=== PATIENT | male | born 1970 | race Caucasian/White ===

== ENCOUNTER 2024-03-03 07:32 | Outpatient (CLI) | payer OTHER, SELFPAY | END 2024-03-03 07:33 | disposition home or self-care (01) | LOC: NFLDREF 03-06 06:46 | PROVIDERS: PCP Nurse Practitioner Family; Referring Provider Nurse Practitioner Family; Visit Provider Nurse Practitioner Family | DX: I10 Essential (primary) hypertension (principal); Z13.220 Encounter for screening for lipoid disorders; Z13.1 Encounter for screening for diabetes mellitus; Z13.0 Encounter for screening for diseases of the blood and blood-forming organs and certain disorders involving the immune mechanism; Z12.5 Encounter for screening for malignant neoplasm of prostate; R94.31 Abnormal electrocardiogram [ECG] [EKG] | CPT/HCPCS: 80053; 80061; 84443; G0103 ==

== ENCOUNTER 2024-03-03 07:37 | Outpatient (CLI) | payer OTHER, SELFPAY ==
[2024-03-03] MEDS: PERFLUTREN LIPID MICROSPHERES 2 ML VIAL IV (09:00)
== END 2024-03-03 07:38 | disposition home or self-care (01) ==
LOC: RAD 07:37
PROVIDERS: PCP Nurse Practitioner Family; Visit Provider Nurse Practitioner Family
DX: R01.1 Cardiac murmur, unspecified (principal); I10 Essential (primary) hypertension
CPT/HCPCS: 93306; Q9957

== ENCOUNTER 2024-12-29 08:42 | Outpatient (CLI) | payer BC, SELFPAY | END 2024-12-29 08:43 | disposition home or self-care (01) | PROVIDERS: PCP Nurse Practitioner Family; Visit Provider Nurse Practitioner Family | DX: R91.8 Other nonspecific abnormal finding of lung field (principal) | CPT/HCPCS: 71250 ==

== ENCOUNTER 2025-05-16 07:39 | Outpatient (CLI) | payer BC, SELFPAY ==
[2025-05-16] MEDS: PERFLUTREN LIPID MICROSPHERES 2 ML VIAL IVP (08:10)
--- NOTE | 2025-05-16 08:17 | PC.NURSE ---
20g Iv placed into right hand. Definity given per histologic technician instruction. IV removed intact once test completed.
== END 2025-05-16 07:40 | disposition home or self-care (01) ==
LOC: RAD 07:39
PROVIDERS: PCP Nurse Practitioner Family; Visit Provider Internal Medicine
DX: I10 Essential (primary) hypertension (principal); I71.40 Abdominal aortic aneurysm, without rupture, unspecified
CPT/HCPCS: 80048; 93306; Q9957

== ENCOUNTER 2025-07-07 19:02 | Emergency (ER) | payer BC, SELFPAY ==
--- OUTSIDE RECORDS SUMMARY | 2025-07-07 19:04 | XMS_ITS | Clinical Summary ---
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 30 Tablet 3 5 Active rosuvastatin (Crestor) 10 mg tabletIndications:H yperlipidemia, unspecified hyperlipidemia type Take 1 Tablet (10 mg) by mouth once daily. 90 Tablet 3 5 Active Active Problems Problem Noted Date Diagnosed Date Stress and adjustment reaction 04/28/2024 Overview (04/28/2024): Stress rash (to trunk and AC regions) and starting on buspar Unspecified essential hypertension 03/09/2007 Encounters Date Type Department Care Team Description 05/17/2025 Orders Only [facility] Scanner 1 scan: (1-Ord) INCOMING RECORDS-LABS, [facility], 05/17/2025 05/17/2025 Orders Only [facility] [place] [address] [facility] [address] [place] [address] Akhil Rogers <No scans attached> 05/17/2025 Telephone [facility] [place] [address] [place] [address] [address] [facility] [place] [address] Bony Ragsdale MD Results 05/16/2025 8:00 AM CDT Ancillary Procedure [facility] [address] [place] [address] 05/10/2025 9:30 AM CDT Office Visit [facility] [address] [place] [address] Bony Ragsdale MD 05/10/2025 Telephone [facility] [place] [address] [facility] [address] [place] [id number] Bony Ragsdale MD Health Maintenance Update (Start Statin) from Last 3 Months Family History Medical History Relation Name Comments Hypertension Father Hypertension Mother Relation Name Status Comments Brother Alive Father Mother Alive Sister Alive Social History Tobacco Use Types Packs/Day Years Used Date Smoking Tobacco: Never Alcohol Use Standard Drinks/Week Comments No 0 (1 standard drink = 0.6 oz pur e alcohol) Social Connections Answer Date Recorded Frequency of Communication with Friends and Fami ly Not on file 04/06/2024 Sex and Gender Information Value Date Recorded Sex Assigned at Not on file Legal Sex Male 6:53 AM [employer] Gender Identity Not on file Sexual Orientation Not on file Obstetrics History Last Filed Vital Signs Vital Sign Reading Time Taken Comments Blood Pressure 120/85 01/25/2009 3:09 PM [employer] Pulse 65 07/18/2007 8:15 AM CDT Temperature 36.9 C (98.5 F) 01/25/2009 3:09 PM [employer] Respiratory Rate - - Oxygen Saturation - - Inhaled Oxygen Concentration - - Weight 121.1 kg (267 lb) 01/25/2009 3:09 PM [employer] Height - - Body Mass Index - - Plan of Treatment Health Maintenance Due Date Last Done Comments Tetanus booster 1983 Depression screening for age 12+ 1984 HIV for age 15-65 1987 BMI (ht and wt on same day) for age 18+ 1990 Hepatitis C screening for age 18-79 1990 Hepatitis B series for 19+ ( 1 of 3 - 19+ 3-dose series) 1991 Pneumococcal series for age 50+ (1 of 2 - PCV) 1991 Colonoscopy through age 75 2017 Lipids for age 45-75 2017 Zoster (shingles) series for age 50+ (1 of 2) 2022 COVID-19 vaccine series (3 - season) 2024 03/14/2021, 02/14/2021 Influenza Vaccine (#1) 2025 Procedures Procedure Name Priority Date/Time Associated Diagnosis Comments SCAN CORRESP-LABORATORY RESULTS 05/17/2025 12:00 AM CDT ECHO TTE COMPLETE W CONTRAST Routine 05/16/2025 8:20 AM CDT HTN (hypertension) Ascending aorta dilatation from Last 3 Months Results * SCAN CORRESP-LABORATORY RESULTS (05/17/2025 12:00 AM CDT) us Scanner OTHER Final Result * ECHO TTE COMPLETE W CONTRAST (05/16/2025 8:20 AM CDT) AORTIC VALVE MEAN PG 6 mmHg EJECTION FRACTION 55 % LVEDD 5.4 cm EJECTION FRACTION 55 - 60% Anatomical Region Laterality Modality Ultrasound 05/16/2025 7:47 AM CDT Narrative 05/16/2025 8:34 AM CDT ECHOCARDIOGRAM CHICHO CURRY : 1970 54 years Study Date: 05/16/2025 7:47:44 AM Gender: M BP: 120/85 mmHg Height: 175.00 cm BSA: 2.33 m Weight: 121.00 kg Tech: TE Referring MD: BONY RAGSDALE Site: [facility] Reading Location: Mobile-OP Patient Location: Outpatient. Procedure: 2D w/ Contrast, Color Doppler and Spectral Doppler. Indication for study: HTN (hypertension); Ascending aorta dilatation Cardiac Rhythm: Regular.Study quality: Fair. Final Impressions: 1. Normal LV size, normal wall thickness, normal function with an estimated EF of 55 - 60%. 2. Right ventricular cavity size is normal, global systolic RV function is normal. 3. No significant valve disease detected. 4. Dilated sinus of Valsalva, diameter of 4.2 cm (upper limit of normal for age, sex, and BSA is 4.1 cm*), Height Index 2.43 cm/m. 5. Echo contrast was administered to enhance visualization of all left ventricular segments. Comparison Compared to prior exam of 03/03/24, there has been no significant change. Chamber Sizes and Function Normal left ventricular size, normal wall thickness, normal global systolic function with an estimated EF of 55 - 60%. No resting regional wall motion abnormality visualized. Left atrial size is normal. Left atrial pressure is normal. Right ventricular cavity size is normal, global systolic RV function is normal. RV wall thickness is normal. The right atrium is normal. Right atrial volume index is 18 ml/m . Right atrial area is 18 cm . The pulmonary artery is of normal size and origin. The sinus of Valsalva is dilated. The ascending aorta is normal sized. Valves, RV Pressures and Diastolic Function The aortic valve is normal in structure and trileaflet, no stenosis and no regurgitation. The mitral valve is normal in structure, trace mitral regurgitation. Normal diastolic function. The tricuspid valve is normal in structure, trace tricuspid regurgitation. The pulmonic valve is normal. No pulmonary regurgitation. Masses, Effusion, Shunts There is no pericardial effusion. The inferior vena cava is normal sized, respiratory size variation greater than 50%. No left to right shunting was detected by limited color flow Doppler interrogation of the interatrial septum. MEASUREMENTS AND CALCULATIONS 2-D Measurements and LV Function: LVID (d) 5.4 cm LV FS% (2D) 30 % LVID (s) 3.8 cm LVOT diameter 2.4 cm IVS (d) 1.0 cm HR 80 bpm LVPW (d) 1.2 cm LA Vol index 26 ml/m2 Ao Sinus 4.2 cm RA Vol index 18 ml/m2 Ao Sinus ULN 4.1 cm * RA area 18 cm Asc Ao 3.8 cm RV Basal Diam 2.9 cm Asc Ao ULN 4.0 cm * LA 4.5 cm * Input BSA outside of range, reported values correspond to BSA = 2.1 Diastology: Mitral Tissue Doppler E Peak 0.7 m/s e', Septum 0.06 m/s A Peak 1.1 m/s e', Lateral 0.08 m/s E/A 0.7 E/e' Average 10.33 DT 103 msec Aortic Valve: Vmax 1.5 m/s DELGADO (V) 3.04 cm VTI 0.32 m DELGADO (I) 3.05 cm LVOT V max 1.0 m/s Max PG 9 mmHg LVOT VTI 0.21 m Mean PG 6 mmHg SV 98 ml Dim Index 0.66 SV index 42 ml/m CO 7.9 l/min CI 3.4 l/min/m Mitral Valve: MVA 7.4 cm MV P 1/2 30 msec Tricuspid Valve and estimated PA pressures: TAPSE 2.2 cm Contrast documentation: 2 ml ml diluted Definity, lot #[id number], [facility]# [id number] was administered peripherally to enhance visualization of all left ventricular segments. . This study was interpreted by an [facility] accredited facility. CC: [facility] ([facility]. Final Procedure Note Cristopher Ladd MD - 05/16/2025 ECHOCARDIOGRAM CHICHO CURRY : 1970 54 years Study Date: 05/16/2025 7:47:44 AM Gender: M BP: 120/85 mmHg Height: 175.00 cm BSA: 2.33 m Weight: 121.00 kg Tech: TE Referring MD: BONY RAGSDALE Site: [facility] Reading Location: Mobile-OP Patient Location: Outpatient. Procedure: 2D w/ Contrast, Color Doppler and Spectral Doppler. Indication for study: HTN (hypertension); Ascending aorta dilatation Cardiac Rhythm: Regular.Study quality: Fair. Final Impressions: 1. Normal LV size, normal wall thickness, normal function with anestimated EF of 55 - 60%. 2. Right ventricular cavity size is normal, global systolic RV functionis normal. 3. No significant valve disease detected. 4. Dilated sinus of Valsalva, diameter of 4.2 cm (upper limit of normalfor age, sex, and BSA is 4.1 cm*), Height Index 2.43 cm/m. 5. Echo contrast was administered to enhance visualization of all leftventricular segments. Comparison Compared to prior exam of 03/03/24, there has been no significant change. Chamber Sizes and Function Normal left ventricular size, normal wall thickness, normal globalsystolic function with an estimated EF of 55 - 60%. No resting regionalwall motion abnormality visualized. Left atrial size is normal. Leftatrial pressure is normal. Right ventricular cavity size is normal, globalsystolic RV function is normal. RV wall thickness is normal. The rightatrium is normal. Right atrial volume index is 18 ml/m . Right atrialarea is 18 cm . The pulmonary artery is of normal size and origin. Thesinus of Valsalva is dilated. The ascending aorta is normal sized. Valves, RV Pressures and Diastolic Function The aortic valve is normal in structure and trileaflet, no stenosis and noregurgitation. The mitral valve is normal in structure, trace mitralregurgitation. Normal diastolic function. The tricuspid valve is normal instructure, trace tricuspid regurgitation. The pulmonic valve is normal. Nopulmonary regurgitation. Masses, Effusion, Shunts There is no pericardial effusion. The inferior vena cava is normal sized,respiratory size variation greater than 50%. No left to right shunting wasdetected by limited color flow Doppler interrogation of the interatrialseptum. MEASUREMENTS AND CALCULATIONS 2-D Measurements and LV Function: LVID (d) 5.4 cm LV FS% (2D) 30% LVID (s) 3.8 cm LVOT diameter2.4 cm IVS (d) 1.0 cm HR 80bpm LVPW (d) 1.2 cm LA Vol index 26ml/m2 Ao Sinus 4.2 cm RA Vol index 18ml/m2 Ao Sinus ULN 4.1 cm * RA area 18cm Asc Ao 3.8 cm RV Basal Diam2.9 cm Asc Ao ULN 4.0 cm * LA 4.5 cm * Input BSA outside of range, reported values correspond to BSA = 2.1 Diastology: Mitral Tissue Doppler E Peak 0.7 m/s e', Septum 0.06 m/s A Peak 1.1 m/s e', Lateral 0.08 m/s E/A 0.7 E/e' Average 10.33 DT 103 msec Aortic Valve: Vmax 1.5 m/s DELGADO (V) 3.04 cm VTI 0.32 m DELGADO (I) 3.05 cm LVOT V max 1.0 m/s Max PG 9 mmHg LVOT VTI 0.21 m Mean PG 6 mmHg SV 98 ml Dim Index 0.66 SV index 42 ml/m CO 7.9 l/min CI 3.4 l/min/m Mitral Valve: MVA 7.4 cm MV P 1/2 30 msec Tricuspid Valve and estimated PA pressures: TAPSE 2.2 cm Contrast documentation: 2 ml ml diluted Definity, lot #[id number], [facility]#[id number] was administered peripherally to enhance visualization of allleft ventricular segments. . This study was interpreted by an [facility] accredited facility. CC: [facility] (med records) [facility]. Final us Bony Ragsdale MD ECHO ORD Final R esult from Last 3 Months Insurance [facility] [employer]-ITS Care Teams Cartridge Loading Operator Relationship Specialty Start Date End Date Unknown, Doctor . PCP - General 08/16/09
[2025-07-07 19:07] VITALS: BP 155/98; PULSE 98; RESP 18; TEMP 36.2; O2SAT 96; BMI 39.9
--- NOTE | 2025-07-07 19:17 | CRLHL7_ITS ---
For Patients: As a result of the Century Cures Act, medical imaging exams and procedure reports are released immediately into your electronic medical record. You may view this report before your referring provider. If you have questions, please contact your health care provider. Indication: Right posterolateral proximal calf pain Technique: Ultrasound soft tissue of the right calf was obtained. Comparison: None. Findings/Impression: There is a small amount of fluid along the gastrocnemius muscle edge which may reflect edema/hematoma versus a tear. If clinically warranted, consider an MRI for further evaluation. Dictated by Chuckie North MD @ 07/07/2025 8:13:41 PM (Electronically Signed)
--- NOTE | 2025-07-07 19:17 | CRLHL7_ITS ---
For Patients: As a result of the Cures Act, medical imaging exams and procedure reports are released immediately into your electronic medical record. You may view this report before your referring provider. If you have questions, please contact your health care provider. Indication: Injury and pain. Technique: Right knee 2 views. Comparison: None. Findings: Bones: Alignment is normal. No fractures or bone lesions. Joint spaces: No joint effusion. Joint spaces are relatively maintained. Soft tissues: Unremarkable. Impression: No acute fracture. Dictated by Chuckie North MD @ 07/07/2025 7:43:57 PM (Electronically Signed)
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
--- NOTE | 2025-07-07 20:57 | ED.NURSE ---
SUMAN wrap applied per MD instructions. Pt understood how to apply new wrap as needed.
== END 2025-07-07 20:58 | disposition home or self-care (01) ==
PROVIDERS: Emergency Provider Family Medicine; PCP Nurse Practitioner Family
DX: S86.911A Strain of unspecified muscle(s) and tendon(s) at lower leg level, right leg, initial encounter (principal); V86.59XA Driver of other special all-terrain or other off-road motor vehicle injured in nontraffic accident, initial encounter
CPT/HCPCS: 73560; 76882; 99283; 99284